=== PATIENT | female | born 2000 | race African-American/Black ===

== ENCOUNTER 2023-02-08 20:30 | Emergency (ER) | payer OTHER ==
[2023-02-08] MEDS ORDERED: Ketorolac Tromethamine 30 MG/ML VIAL ONE (21:07)
== END 2023-02-08 21:12 | disposition home or self-care (01) ==
LOC: CSHERS 20:30
DX: S39.012A Strain of muscle, fascia and tendon of lower back, initial encounter (principal); V89.2XXA Person injured in unspecified motor-vehicle accident, traffic, initial encounter
CPT/HCPCS: 96372; 99283; J1885

== ENCOUNTER 2023-05-03 19:24 | Emergency (ER) | payer OTHER, BC | END 2023-05-03 20:11 | disposition left against medical advice (07) | LOC: CSHERS 19:24 | DX: Z53.21 Procedure and treatment not carried out due to patient leaving prior to being seen by health care provider (principal) ==

== ENCOUNTER 2023-06-15 19:11 | Emergency (ER) | payer OTHER, BC ==
[2023-06-15] MEDS ORDERED: Ketorolac Tromethamine 30 MG/ML VIAL ONE (19:57)
[2023-06-15] MEDS ORDERED: diphenhydrAMINE 50 MG/ML VIAL ONE (19:57)
[2023-06-15] MEDS ORDERED: Prochlorperazine 10 MG/2 ML VIAL ONE (19:57)
== END 2023-06-15 21:35 | disposition home or self-care (01) ==
LOC: CSHERS 19:11
DX: R51.9 Headache, unspecified (principal); R03.0 Elevated blood-pressure reading, without diagnosis of hypertension; J45.909 Unspecified asthma, uncomplicated
CPT/HCPCS: 96372; 99283; J0780; J1200; J1885

== ENCOUNTER 2023-07-28 10:22 | Emergency (ER) | payer OTHER, BC ==
[2023-07-28] MEDS ORDERED: Ketorolac Tromethamine 30 MG/ML VIAL ONE (11:43)
== END 2023-07-28 12:12 | disposition home or self-care (01) ==
LOC: CSHERS 10:22
DX: S46.912A Strain of unspecified muscle, fascia and tendon at shoulder and upper arm level, left arm, initial encounter (principal); S16.1XXA Strain of muscle, fascia and tendon at neck level, initial encounter; V89.2XXA Person injured in unspecified motor-vehicle accident, traffic, initial encounter
CPT/HCPCS: 96372; 99283; J1885

== ENCOUNTER 2024-09-22 10:38 | Emergency (ER) | payer BC, OTHER ==
[2024-09-22] MEDS ORDERED: Acetaminophen 500 MG TAB ONE (11:16)
[2024-09-22] MEDS ORDERED: Ketorolac Tromethamine 30 MG (1 mL) VIAL ONE (11:49)
[2024-09-22] MEDS ORDERED: Ondansetron ODT 4 MG TAB ONE (11:49)
== END 2024-09-22 13:20 | disposition home or self-care (01) ==
LOC: CSHERS 10:38
DX: J06.9 Acute upper respiratory infection, unspecified (principal); I10 Essential (primary) hypertension
CPT/HCPCS: 87081; 87428; 87430; 96372; 99283; J1885; Q0162